=== PATIENT | male | born 1925 | race Caucasian/White ===

== ENCOUNTER 2016-04-13 14:47 | Emergency (ER) | payer MEDICARE ==
--- NOTE | 2016-04-13 15:23 | UC ---
Dizzy HPI HPI Summary: The patient comes in today for: 1. Dizziness, headache Onset: Yesterday. Palliative/provocative: Moving around makes this worse. Quality: "Like someone has their hand on my head." Region: Right head Severity: 3/10 Time: Constant. Associated symptoms: Event: Yesterday, when he went for a pacemaker check he felt a shock and it was on the right side of his head. He has pressure at this time. He denies any injury. Initially, it was 7/10, but now it is only 3/10. He denies any numbness or weakness. He states that he has lightheadedness and dizziness: He defines this as "just wanting to lay down." Kwesiaker: He has had this for 11 years. No other symptoms: No nausea. * - History Of Current Complaint Chief Complaint: UCDizziness Stated Complaint: HEADACHE, AND DIZZINESS Time Seen by Provider: 04/13/16 15:06 Hx Obtained From: Patient, Family/[employer] - Allergies/Home Medications Allergies/Adverse Reactions: Allergies Allergy/AdvReac Type Severity Reaction Status Date / Time No Known Allergies Allergy Verified 04/13/16 14:54 PMH/Surg Hx/FS Hx/Imm Hx Previously Healthy: No - Hx of colitis. Endocrine History Of: Denies: Diabetes, Thyroid Disease, Hyperthyroidism, Hypothyroidism, Dyslipidemia Cardiovascular History Of: Reports: Cardiac Disorders - Aortic valve replaced in 2005., Hypertension - meds, Pacemaker/ICD, Atrial Fibrillation Denies: Myocardial Infarction, Congestive Heart Failure Respiratory History Of: Denies: COPD, Asthma, Bronchitis, Pneumonia, Pulmonary Embolism GI/ History Of: Reports: Gastroesophageal Reflux Denies: Ulcer, Gastrointestinal Bleed, Gall Bladder Disease, Kidney Stones, Diverticulitis, Renal Disease, Urosepsis Neurological History Of: Denies: TIA, CVA, Dementia, Seizures, Migraine Psychological History Of: Reports: Depression Denies: Anxiety, Bipolar Disorder, Schizophrenia, Post Traumatic Stress Disorder Cancer History Of: Denies: Lung Cancer, Colorectal Cancer, Breast Cancer, Prostate Cancer, Cervical Cancer Other History Of: Anticoagulant Therapy - Aspirin Negative For: HIV, Hepatitis B, Hepatitis C - Surgical History Surgical History: Yes Surgery Procedure, Year, and Place: pacer aortic valve replacement, quadruple vlave replacement,inguinal hernia repair, cholecystecomy tonsilectomy, bilat cataract surgery, prostactomy - Family History Known Family History: Positive: Cardiac Disease, Hypertension - Social History Occupation: Retired Lives: With Family Alcohol Use: None Substance Use Type: None Smoking Status (MU): Never Smoked Tobacco - Immunization History Most Recent Influenza Vaccination: 2016 Most Recent Tetanus Shot: unknown Most Recent Pneumonia Vaccination: unknown Review of Systems Constitutional: Negative Skin: Negative Eyes: Negative ENT: Negative Respiratory: Negative Cardiovascular: Negative Gastrointestinal: Negative Genitourinary: Negative All Other Systems Reviewed And Are Negative: Yes Physical Exam Triage Information Reviewed: Yes Appearance: Well-Appearing, No Pain Distress Vital Signs: Initial Vital Signs Temp 97 F 04/13/16 15:01 Pulse 73 04/13/16 15:01 Resp 18 04/13/16 15:01 BP 166/81 04/13/16 15:01 Pulse Ox 97 04/13/16 15:01 Vital Signs Reviewed: Yes Eyes: Positive: Conjunctiva Clear. Negative: Discharge ENT: Positive: Hearing grossly normal. Negative: Pharyngeal erythema, Nasal congestion, Nasal drainage, TM bulging, TM dull, TM red, Tonsillar swelling, Tonsillar exudate Dental: Negative: Gross Decay/Caries @, Dental Fracture @ Neck: Positive: Supple, Nontender, No Lymphadenopathy. Negative: Nuchal Rigidity Respiratory: Positive: Lungs clear, No respiratory distress, No accessory muscle use. Negative: Crackles, Wheezing Cardiovascular: Positive: RRR. Negative: No Murmur - Positive SEJM. Pacemaker in the left upper anterior chest. Abdomen Description: Positive: Nontender, No Organomegaly, Soft Musculoskeletal: Positive: Strength Intact, ROM Intact, No Edema Neurological: Positive: Alert, Muscle Tone Normal, Other: - Neurologic exam: Inspection: no fasciculations. Cranial nerves (II-XII): intact except he did not hear rubbing fingers 6" from ears (he has deafness) Muscular tone: Reflexes : Biceps: 2+/2 x 2 Triceps: 2+/2 x 2 Brachioradialis: 2+/2 x 2 Patellar: 0+/2 x 2 Achilles: 0+/2 x 2 Coordination: Upper extremity: Alternating patting of thighs, alternating fingertips to thumb, index finger tip to nose--all normal. Lower extremity: Heel along dey--normal. He is not able to walk heel-to-toe Strength: Upper extremity: appropriate for age and symmetrical Lower extremity: appropriate for age and symmetrical Gait : Regular: Normal. Heel to toe: He is not able to do. Rhomberg: Normal. Sensation: No complaint of numbness. Psychological: Positive: Normal Response To Family, Age Appropriate Behavior, Consolable Skin: Negative: rashes, breakdown Diagnostics - Laboratory Diagnostic Studies Completed/Ordered: IMPRESSION: NO ACUTE INTRACRANIAL PATHOLOGY. CHRONIC SMALL VESSEL ISCHEMIC CHANGES. - Radiology No standard instances Xray Interpretation: Positive (See Comments) Radiology Interpretation Completed By: Radiologist Dizzy Course/Dx - Course Course Of Treatment: Patient and family was told that I did not know for sure what was causing his head discomfort. He and the family were told of his diagnostic and treatment options. At this time, the "wants something done " so the patient and the family decided on getting a CT of the head. The family was told of the CT scan report and that I did not have any explanation for the sensation of "someone's hand on the right side of his head" and recommended further evaluation through his primary care provider. They agreed. - Differential Dx/Diagnosis Provider Diagnoses: Cephalgia. Fatigue Discharge - Discharge Plan Condition: Stable Disposition: HOME Patient Education Materials: Dizziness (ED), General Headache (ED) Referrals: Bishnu Mcgregor MD [Primary Care Provider] - 1 Week (Please contact your primary care provider and later this week or early next week to see how well you are doing. If you get worse, please be seen sooner.)
[2016-04-13 15:51] VITALS: BP 165/84
--- NOTE | 2016-04-13 16:14 | RAD ---
HISTORY: Right temporal and frontal headache COMPARISONS: November 12, 2015 TECHNIQUE: Multiple contiguous axial CT scans were obtained of the head without intravenous contrast. FINDINGS: HEMORRHAGE/INFARCT: There is no hemorrhage or acute infarct. MASSES/SHIFT: There is no mass or shift. EXTRA-AXIAL SPACES: There are no extra-axial fluid collections. SULCI AND VENTRICLES: The sulci and ventricles are normal in size and position for the patient's stated age. CEREBRUM: There is hypoattenuation of the periventricular and subcortical white matter. BRAINSTEM: There are no focal parenchymal abnormalities. CEREBELLUM: There are no focal parenchymal abnormalities. VESSELS: The vessels are grossly normal. PARANASAL SINUSES: The paranasal sinuses are clear. ORBITS: The orbits are unremarkable. BONES AND SOFT TISSUE: No bone or soft tissue abnormalities are noted. OTHER: None IMPRESSION: NO ACUTE INTRACRANIAL PATHOLOGY. CHRONIC SMALL VESSEL ISCHEMIC CHANGES.
== END 2016-04-13 16:45 | disposition home or self-care (01) ==
LOC: UCEAST 14:47
DX: R51 Headache (principal); R53.83 Other fatigue; R42 Dizziness and giddiness; Z95.0 Presence of cardiac pacemaker; Z79.82 Long term (current) use of aspirin
CPT/HCPCS: 70450; 93005; 99212; G0463